=== PATIENT | male | born 1975 | race Caucasian/White ===

== ENCOUNTER 2024-06-23 14:56 | Emergency (ER) | payer BC, SELFPAY ==
[2024-06-23 15:08] VITALS: BP 153/94
[2024-06-23 16:38] VITALS: BMI 34.1
--- NOTE | 2024-06-23 16:59 | ED.GENMED ---
History of Present Illness
General
Chief Complaint: Extremity Pain (non-traumatic)
Source: patient
Exam Limitations: none
Time Seen by Provider: 06/23/24 16:50
History of Present Illness
History of Present Illness:
[age]-year-old male complaining of swelling of the right leg for 2 weeks. Seen at another hospital a week ago. Worked up there and discharged. No etiology apparently found. Complaining of ongoing pain and swelling. No fever. No redness to the
leg. No chest pain or shortness of breath. Does have a slight cough with sputum that started a week ago.
Past History
Past History
ED Past Medical History: Other (Narcotic addiction)
ED Past Surgical History: Cholecystectomy and Orthopedic
Review of Systems
Review of Systems
All Other Systems: Not applicable
Constitutional: Denies fever or chills
Respiratory: Reports cough; Denies hemoptysis or trouble breathing
Cardiac: Reports no symptoms
Phy Exam
Physical Exam
Physical Exam:
GENERAL: Alert and oriented in no apparent distress
EYE: Orbits normal.
NECK: Supple
CARDIAC: Regular rate and rhythm without any obvious murmurs.
LUNGS: No respiratory distress but mild end expiratory wheeze at times. Patient showed me his sputum which was mildly yellow with no obvious blood.
ABDOMEN: Soft, without focal tenderness or distention
NEUROLOGICAL: Alert and oriented , grossly non-focal
SKIN: Warm and dry, no rash or lesion, no discoloration, skin intact.
MUSCULOSKELETAL: Mild edema to the right lower leg more towards the right ankle. Seems to center at the ankle. Thigh is nontender. Knee is normal without swelling warmth or erythema. No pain with knee motion. No pain with hip rotation.
Tenderness mostly localized to the ankle again without warmth or erythema. Great distal pulses and color.
PSYCH: Normal and appropriate interaction.
Course
Orders/Labs/Results
Orders:
Orders
06/23/24 16:58
Ankle, Right 3 view CR [CR Ankle - Right Min 3 Views *] Urgent
Comment:
Reason For Exam: Swelling pain
Tib/Fib, Right 2 View [CR Leg Tibia/fibula Right 2 Vw] Urgent
Comment:
Reason For Exam: Swelling/pain
US Periph Venous LOWER Ext RT Urgent
Comment:
Reason For Exam: Leg swelling
06/23/24 17:13
Basic Metabolic Panel Urgent
CPK [Creatine Phosphokinase] Urgent
CRP [C-Reactive Protein] Urgent
Complete Blood Count/With Diff Urgent
ESR [Erythrocyte Sed Rate] Urgent
Lyme Progressive Urgent
Abnormal Lab Results
06/23/24
17:13
RBC 3.84 L 10^6/uL
(4.70-6.10)
Hgb 11.9 L g/dL
(13.0-18.0)
Hct 36.3 L %
(39.0-52.0)
MCV 94.5 H fL
(80.0-94.0)
MCHC 32.8 L g/dL
(33.0-37.0)
Absolute Monos (auto) 0.7 H 10^3/uL
(0.1-0.6)
Monocytes % 10.0 H %
(1.7-9.3)
Carbon Dioxide 31 H mmol/L
(22-30)
C-Reactive Protein 16.10 H mg/L
(0.0-10.00)
06/23/24 17:13
06/23/24 17:13
Vital Signs
Initial and Last Documented VS:
Initial Vital Signs
Temp Pulse Resp BP Pulse Ox
97.6 F 68 16 153/94 98
06/23/24 15:08 06/23/24 15:08 06/23/24 15:08 06/23/24 15:08 06/23/24 15:08
Last Documented Vital Signs
Temp Pulse Resp BP Pulse Ox
97.6 F 68 16 153/94 98
06/23/24 15:08 06/23/24 15:08 06/23/24 15:08 06/23/24 15:08 06/23/24 16:39
MDM/Problems Addressed
Differential Diagnosis Includes:
Impression is right leg swelling more centered at the joint. Clinically not an arterial issue. Highly doubt venous issue but will repeat ultrasound for completeness. Doubt acute infectious issue but will also get guidance from the CBC ESR and
CRP. More suspicious of a monoarticular ankle issue. However highly doubt septic joint. Patient does not use IV drugs. He is no fever. No other risk factors. He also has a slight cough that has had for a week. He is in no distress. He does
smoke. We will get a chest x-ray.
*Radiology
Radiology exam reviewed: other (Negative ultrasound. Negative x-rays)
*Pulse Oximetry
Patient hypoxic: no
*Critical Care Note
Total Time (30-74mins, 75-104mins- exclusive of procedures): Not Applicable
Update Note
Update Note:
Nonspecific inflammation of the right ankle mostly. Highly doubt acute infectious issue. Minimal inflammatory marker elevation. Also with yellow sputum and cough. Will cover with doxycycline to follow-up
ED Attending Note
-
Portions of this chart may have been created with voice recognition software.� Occasional wrong word or��sound alike� substitutions may have occurred due to the inherent limitations of voice recognition software.
Discharge Plan
Departure
Patient Disposition: Home (Routine Discharge)
Date of Disposition: 06/23/24
Time of Disposition: 20:12
Patient with high blood pressure during this ER visit?: Yes
Discharge Problem:
Monoarticular arthritis right ankle, Right leg swelling, Bronchitis
Instructions: BLOOD PRESSURE
Prescriptions:
New
doxycycline hyclate 100 mg capsule
100 mg PO BID 10 Days Qty: 20 0RF
Referrals:
NONE,* [Family Provider] -
Activity Restrictions/Additional Instructions:
Elevate and rest the leg
Advil or Motrin for pain
Take the antibiotics as directed for your bronchitis
Follow-up with your primary physician and [facility] so recommend orthopedic follow-up for the leg swelling
Return sooner with increased swelling redness fever or any other concerning symptoms
Interventions
Interventions:
*Risk Screen - Suicide Last Done: 06/23/24 15:08
*General Assessment Last Done: 06/23/24 15:08
*Neglect/Abuse Screening Last Done: 06/23/24 15:08
ED- Fall Risk Assessment Last Done: 06/23/24 16:39
*ED COVID-19 Vaccine History Last Done: 06/23/24 16:39
ED-Skin Assessment Last Done: 06/23/24 16:39
ED-Peripheral Vascular Assessment Last Done: 06/23/24 17:17
ED-Musculoskeletal Assessment Last Done: 06/23/24 16:39
Discharge Date and Time
Print Language: CZECH
[2024-06-23 17:42] LABS: % Basophils 0.3 % (0-2); % Eosinophils 4.4 % (0-6); % Immature Granulocytes 0.1 % (0-0.5); % Lymphocytes 25.7 % (20.5-51.1); % Neutrophils 59.5 % (42.2-75.2); Absolute Eosinophils 0.3 10^3/uL (0-0.7); Absolute Lymphocytes 1.9 10^3/uL (1.2-3.4); Absolute Monocytes 0.7 10^3/uL (0.1-0.6); Absolute Neutrophils 4.4 10^3/uL (1.4-6.5); Hematocrit 36.3 % (39.0-52.0); Hemoglobin 11.9 g/dL (13.0-18.0); Mean Corp Hgb Conc. 32.8 g/dL (33.0-37.0); Mean Corpuscular Volume 94.5 fL (80.0-94.0); Mean Platelet Volume 10.1 fL (7.4-10.4); Nucleated Red Blood Cells % 0 % (-); Platelet Count 298 10^3/uL (130-400); Red Blood Cell Count 3.84 10^6/uL (4.70-6.10); Red Cell Dist. Width 12.4 % (11.5-14.5); White Blood Cell Count 7.3 10^3/uL (4.8-10.8)
[2024-06-23 17:48] LABS: Erythrocyte Sed Rate 19 mm/hour (0-20)
[2024-06-23 17:56] LABS: Blood Urea Nitrogen 18 mg/dl (9-20); Calcium 8.8 mg/dl (8.4-10.2); Carbon Dioxide 31 mmol/L (22-30); Chloride 99 mmol/L (98-107); Creatine Phosphokinase 168 U/L (55-170); Estimated Creatinine Clearance 121 ml/min; Glucose 95 mg/dl (70-99); Potassium 4.2 mmol/L (3.5-5.1); Sodium 138 mmol/L (135-145); eGFR > 60.00
[2024-06-24 14:28] LABS: Lyme Antibody Screen, EIA Negative (Negative)
== END 2024-06-23 20:28 | disposition home or self-care (01) ==
LOC: EMR 14:56
PROVIDERS: EMERGENCY PHYSICIAN Emergency Medicine
DX: M19.071 Primary osteoarthritis, right ankle and foot (principal); J20.9 Acute bronchitis, unspecified; M79.604 Pain in right leg; M79.89 Other specified soft tissue disorders; Z90.49 Acquired absence of other specified parts of digestive tract
CPT/HCPCS: 99284; 73590; 73610; 80048; 82550; 85025; 85652; 86140; 86618; 93971